=== PATIENT | female | born 1995 | race Asian ===

== ENCOUNTER 2019-11-25 14:11 | Emergency (ER) | payer BC ==
[2019-11-25 14:20] VITALS: Ht 170.2 cm
[2019-11-25 15:01] LABS: BASOPHIL % 0.1 % (0-2); PLATELET COUNT 216 x10^3mcL (130-400); RED CELL DISTRIBUTION WIDTH 12.1 % (11.5-14.5)
[2019-11-25 15:03] LABS: CARBON DIOXIDE 20.8 mmol/L (21-32); CHLORIDE SERUM 102 mmol/L (98-107); CREATININE SERUM 0.8 mg/dL (0.6-1.0); GFR1 > 60 mL/min; GLUCOSE SERUM 124 mg/dL (74-106); POTASSIUM SERUM 3.1 mmol/L (3.5-5.1); SODIUM SERUM 137 mmol/L (136-145)
[2019-11-25 15:08] LABS: ALBUMIN 4.5 g/dL (3.4-5.0); ALKALINE PHOSPHATASE 48 U/L (46-116); ALT/SGPT 21 U/L (14-59); AST/SGOT 8 U/L (15-37); BILIRUBIN TOTAL 1.12 mg/dL (0.20-1.00); LIPASE 141 IU/L (73-393); TOTAL PROTEIN, SERUM 7.9 g/dL (6.4-8.2)
[2019-11-25 16:16] VITALS: BP 115/61
== END 2019-11-25 16:16 | disposition home or self-care (01) ==
LOC: ED 14:11
PROVIDERS: Emergency Medicine
DX: K52.9 Noninfective gastroenteritis and colitis, unspecified (principal)
CPT/HCPCS: J2765; J7030; Q0092